=== PATIENT | female | born 1940 | race Caucasian/White ===

== ENCOUNTER → 2018-05-30 | Day surgery (SDC) | payer MEDICARE ==
--- NOTE | 2018-05-25 10:42 | Diagnostic Imaging Report ---
PROCEDURE: X-RAY CHEST, TWO VIEWS COMPARISON: None. INDICATIONS: PRE OPERATIVE CHEST X-RAY FOR STENT REPLACEMENT FINDINGS: LUNGS: No consolidations or edema. PLEURA: No effusions or pneumothorax. HEART \T\ MEDIASTINUM: The heart is within normal size-limits. Calcification within the aorta. BONES \T\ SOFT TISSUES: No acute findings. CONCLUSION: No acute thoracic abnormality. Garrett Amador D.O. Dictated by: Garrett Amador D.O. on 05/25/2018 at 10:45 Electronically approved by: Garrett Amador D.O. on 05/25/2018 at 10:45
[2018-05-25 10:45] LABS: BASOPHILS % 0.6 % (0.0-1.0); EOSINOPHILS # (AUTO) 0.1 (0.0-0.4); EOSINOPHILS % 2.7 % (0.0-6.0); HEMATOCRIT 38.4 % (34.2-44.1); HEMOGLOBIN 12.7 g/dL (12.0-16.0); LYMPHOCYTES # (AUTO) 1.1 (1.0-3.2); LYMPHOCYTES % 20.7 % (18.0-39.1); MEAN CORPUSCULAR HEMOGLOBIN 29.4 pg (28-32); MEAN CORPUSCULAR HGB CONC 33.1 g/dL (31-35); MEAN CORPUSCULAR VOLUME 88.9 fL (81-99); MONOCYTES # (AUTO) 0.4 (0.2-0.8); MONOCYTES % 7.4 % (4.4-11.3); NEUTROPHILS # (AUTO) 3.5 (2.1-6.9); NEUTROPHILS % 68.2 % (38.7-80.0); PLATELET COUNT 147 x10e3/uL (140-360); RED BLOOD COUNT 4.32 x10e6/uL (3.6-5.1); RED CELL DISTRIBUTION WIDTH 13.2 % (11.7-14.4)
[~2018-05-30] MED LIST: BELLADONNA/OPIUM 30 MG SUPP RC ONE; CEFTRIAXONE SOD 1 GM VIAL ONE; CENTRUM SILVER1 EAC3 PO; DEXAMETHASONE SOD PHOS INJ 4 MG/ML VIAL ONE; ESTER-C PO; GENTAMICIN 80MG/NS 100 ML 100 ML IV ONE; IOPAMIDOL 610MG/1ML 300 MG/ML VIAL IV ONE; LIDOCAINE HCL 2% LOCAL INJ 5 ML SDV VIAL INJ ONE; LISINOPRIL10 MG PO; ONDANSETRON HCL INJ 2 MG/ML VIAL ONE; PRAVASTATIN SOD40 MG PO; PRESERVISION A1 EACH PO; PROPOFOL IV EMULSION 10 MG/ML 20 ML VIAL ONE; SEVOFLURANE INHAL SOLN 250 ML PEN BTL ONE; VIACTIV SOFT C1 EACH PO; VITAMIN D31000 UNI1 PO
--- NOTE | 2018-05-30 07:30 | Diagnostic Imaging Report ---
PROCEDURE:X-RAY ABDOMEN - KUB COMPARISON:None. INDICATIONS:PREOPERATIVE XRAY FOR CYSTO SURGERY FINDINGS: Right internal ureteral stent with the proximal locking loop projecting over the expected region of the right renal pelvis. The distal locking loop projects over the urinary bladder. No suspicious calcifications project over the renal shadows or expected ureteral courses. No calculi project along side the right internal ureteral stent. Bowel gas pattern is nonobstructive. Regional skeletal structures are intact with multilevel degenerative disc changes of the lower lumbar spine. CONCLUSION: Appropriately positioned right internal ureteral stent. No plain film evidence of urolithiasis. Dictated by: Kem Bernstein M.D. on 05/30/2018 at 7:34 Electronically approved by: Kem Bernstein M.D. on 05/30/2018 at 7:34
--- NOTE | 2018-07-11 03:50 | Operative Report ---
DATE OF PROCEDURE: May 30, 2018 PREOPERATIVE DIAGNOSES: 1. Right indwelling ureteral stent. 2. Right ureteral stricture. 3. Right hydronephrosis due to stricture. 4. Atrophic vaginitis. POSTOPERATIVE DIAGNOSES: 1. Right indwelling ureteral stent. 2. Right ureteral stricture. 3. Right hydronephrosis due to stricture. 4. Atrophic vaginitis. OPERATIONS PERFORMED: 1. Cystourethroscopy with complicated removal of right indwelling ureteral stent (separate procedure performed for the diagnosis of stent). 2. Right ureteroscopy with dilation of stricture (separate procedure performed for the diagnosis of stricture). 3. Radiological services for supervision and interpretation of stricture dilation. 4. Cystourethroscopy with insertion of right indwelling ureteral stent (separate procedure performed to relieve the hydronephrosis). 5. Interpretation of retrograde ureteropyelography. 6. Pelvic examination under anesthesia. ANESTHESIA: General. COMPLICATIONS: None. CLINICAL SUMMARY: Vicky Rai is a 78-year-old woman with chronic right ureteral stent for chronic right ureteral stricture. The patient for numerous reasons is brought to the operating room later than desired to change her stent. She is aware of the risks of bleeding, infection, injury to adjacent structures and need for additional procedures and elected to proceed. OPERATIVE PROCEDURE IN DETAIL: Informed consent was verified. Vicky Rai was properly identified, taken to the operating room, placed on the cystoscopy table in supine position. Anesthesia was uneventfully begun. The patient was then carefully and gently repositioned in the dorsal lithotomy position with all pressure points well padded. Her genitalia were prepared and draped in usual sterile fashion. The 22.5-[place]an cystoscope sheath with the obturator in place was atraumatically inserted into the patient's urethra and the bladder was drained. Panendoscopy revealed no suspicious mucosal lesions. No tumors and no diverticula. There was encrustation noted on the stent emerging from the laterally displaced right ureteral orifice. Some encrustations were rather heavy. A guide wire was then placed alongside the stent and guided below the patient's kidney. The stent was then grasped completely, removed and discarded. A semi-rigid ureteroscope was then inserted alongside the guide wire and into the right ureter where we identified the stricture. We dilated across this stricture utilizing the ureteroscope. We proved there were no distal stones present in this ureter. The patient had previous stone debris. Under cystoscopic and fluoroscopic guidance, a right-sided indwelling ureteral stent was then placed. It was coiled in the patient's kidney as well as the patient's bladder. The retaining suture was cut short. Interpretation retrograde ureterography: Contrast was instilled in retrograde fashion on the right hand side via the ureteroscope. There was chronic dilation of the upper collecting system. There was chronic hydronephrosis. Caliceal blunting was noted. The stent was in good position, coiled in patient's kidney as well as patient's bladder at the end the case. The patient's bladder was then drained. The cystoscope was withdrawn. Pelvic examination under anesthesia revealed atrophic vaginitis. No abnormal palpable pelvic masses could be appreciated. There were no obvious mucosal lesions. The patient was then uneventfully reversed from anesthesia and taken to the recovery in stable condition. Explicit postoperative instructions were given. Will follow the patient up in the office. Job#: [id number] APOLONIA
== END | disposition home or self-care (01) ==
LOC: OR 05:12
PROVIDERS: ATTEND Urology
DX: N13.1 Hydronephrosis with ureteral stricture, not elsewhere classified (principal); Z46.6 Encounter for fitting and adjustment of urinary device; N95.2 Postmenopausal atrophic vaginitis; I12.9 Hypertensive chronic kidney disease with stage 1 through stage 4 chronic kidney disease, or unspecified chronic kidney disease; N18.9 Chronic kidney disease, unspecified; N39.0 Urinary tract infection, site not specified; Z87.442 Personal history of urinary calculi; Z01.810 Encounter for preprocedural cardiovascular examination; Z01.812 Encounter for preprocedural laboratory examination; Z01.818 Encounter for other preprocedural examination; Z85.3 Personal history of malignant neoplasm of breast; Z92.21 Personal history of antineoplastic chemotherapy; Z87.891 Personal history of nicotine dependence
CPT/HCPCS: 36415; 52332; 52344; 71046; 74420; 85025; 87086; 93005; C2617; J0696; J1100; J1580; J2001; J2405; Q9967; 74018

== ENCOUNTER → 2018-09-26 | Day surgery (SDC) | payer MEDICARE ==
[2018-09-22 11:29] LABS: BASOPHILS % 0.8 % (0.0-1.0); EOSINOPHILS # (AUTO) 0.1 (0.0-0.4); EOSINOPHILS % 2.4 % (0.0-6.0); HEMATOCRIT 37.4 % (34.2-44.1); HEMOGLOBIN 12.4 g/dL (12.0-16.0); LYMPHOCYTES # (AUTO) 0.9 (1.0-3.2); LYMPHOCYTES % 17.1 % (18.0-39.1); MEAN CORPUSCULAR HEMOGLOBIN 29.7 pg (28-32); MEAN CORPUSCULAR HGB CONC 33.2 g/dL (31-35); MEAN CORPUSCULAR VOLUME 89.7 fL (81-99); MONOCYTES # (AUTO) 0.4 (0.2-0.8); MONOCYTES % 7.9 % (4.4-11.3); NEUTROPHILS # (AUTO) 3.8 (2.1-6.9); NEUTROPHILS % 71.4 % (38.7-80.0); PLATELET COUNT 147 x10e3/uL (140-360); RED BLOOD COUNT 4.17 x10e6/uL (3.6-5.1)
[~2018-09-26] MED LIST changes: -BELLADONNA/OPIUM 30 MG SUPP RC ONE; -DEXAMETHASONE SOD PHOS INJ 4 MG/ML VIAL ONE; +FENTANYL CITRATE/PF 100MCG/2 ML INJ ONE
--- OUTSIDE RECORDS SUMMARY | 2018-09-26 05:10 | XMS REPORT | Clinical Summary ---
Author Author [facility] Address Unknown Phone Unavailable Care Team Providers Care Tissue Technician Name Role Phone Lainey Ramos MD PCP Allergies Not on File Current Medications Not on file Active Problems Not on file Social History Tobacco Use Types Packs/Day Years Used Date Never Assessed Sex Assigned at Date Recorded Not on file Last Filed Vital Signs Not on file Plan of Treatment Health Maintenance Due Date Last Done Comments SHINGRIX VACCINE (#1) 1989 ZOSTER VACCINE 1999 PNEUMOCOCCAL 2004 POLYSACCHARIDE VACCINE AGE 65 AND OVER PNEUMOCOCCAL-13 2004 INFLUENZA VACCINE 06/29/2018 Results Not on fileafter 09/25/2017 Insurance Payer Benefit Subscriber ID Type Phone Address Plan / Group [employer] MEDICARE [employer] xxxxxxxxx [employer] Home: [id number] [place] [id number]
[2018-09-26 08:15] VITALS: BP 138/74
--- NOTE | 2018-11-03 14:15 | Operative Report ---
DATE OF PROCEDURE: September 26, 2018 PREOPERATIVE DIAGNOSES 1. Right ureteral stricture. 2. Right hydronephrosis due to stricture. 3. Right indwelling ureteral stent. POSTOPERATIVE DIAGNOSES 1. Right ureteral stricture. 2. Right hydronephrosis due to stricture. 3. Right indwelling ureteral stent. 4. Mild cystocele. 5. Mild rectocele. 6. 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 OPERATIONS PERFORMED 1. Cystourethroscopy with complicated removal of right indwelling ureteral stent (separate procedure performed for the diagnosis of the stent). 2. Cystourethroscopy with dilation of right ureteral stricture (separate procedure performed for the diagnosis of stricture). 3. Radiological services for supervision and interpretation for stricture dilation. 4. Cystourethroscopy with insertion of right indwelling ureteral stent (separate procedure performed to relieve the hydronephrosis). 5. Interpretation of retrograde ureteropyelography. 6. Supervision of fluoroscopy. No radiologist present. 7. Pelvic examination under anesthesia. ANESTHESIA: General. COMPLICATIONS: None. CLINICAL SUMMARY: Vicky Rai is a 78-year-old woman with severe right ureteral stricture. She is brought in and stent being managed with a chronic stent. She is brought for the above procedures. She is aware the risks of bleeding, infection, injury to adjacent structures, need for additional procedures, and elected to proceed. OPERATIVE PROCEDURE IN DETAIL: Informed consent was verified. Vicky Rai was properly identified and taken to the operating room, and placed on the cystoscopy table in the supine position. Anesthesia was uneventfully begun. The patient was then carefully and gently repositioned in the dorsal lithotomy position with all pressure points well-padded. Her genitalia were prepared and draped in the usual sterile fashion. The 22.5-Surinamese cystoscope sheath with the obturator in place was atraumatically inserted into the patient's urethra and the bladder was drained. Panendoscopy of the urinary bladder revealed no suspicious mucosal lesions. No tumors. No stones and no diverticula. There was a stent emerging from the right ureteral orifice and it was somewhat encrusted. A guidewire was then placed alongside the stent and guided to the level of the patient's kidney. The stent was then grasped and completely removed and then discarded. A double lumen ureteral catheter was then placed over the guidewire and guided to the level of the patient's kidney. We utilized this as a coaxial dilator. We dilated the ureteral stricture. Clear efflux was obtained from the kidney. Contrast was injected. With cystoscopic and fluoroscopic guidance, a right-sided indwelling ureteral stent was then placed. It was coiled in the patient's kidney, as well as the patient's bladder. The retaining suture was cut. Interpretation of retrograde ureteropyelography: Contrast was instilled in a retrograde fashion on the right hand side. There was chronic appearing hydronephrosis with caliceal blunting. The stent was in good position, coiled in the patient's kidney, as well as the patient's bladder at the end of the case. There were no suspicious lesions noted and there were no filling defects. We then evacuated some sand out of the patient's bladder, which fell off the stent as we removed it. The patient's bladder was then drained. Pelvic examination under anesthesia revealed grade 1 cystocele and grade 1 rectocele. There was atrophic vaginitis with stenosis. No abnormal palpable pelvic masses could be appreciated. There were no obvious mucosal lesions. Patient was then uneventfully reversed from anesthesia and taken to the recovery room in stable condition. Explicit postop instructions were given. Will follow the patient up in the office. Of course, ongoing urological followup and regular stent changes are mandatory. Job#: [id number] [facility]
== END | disposition home or self-care (01) ==
LOC: OR 05:00
PROVIDERS: ATTEND Urology
DX: N13.1 Hydronephrosis with ureteral stricture, not elsewhere classified (principal); N81.10 Cystocele, unspecified; N81.6 Rectocele; I12.9 Hypertensive chronic kidney disease with stage 1 through stage 4 chronic kidney disease, or unspecified chronic kidney disease; N18.9 Chronic kidney disease, unspecified; Z87.891 Personal history of nicotine dependence; I25.2 Old myocardial infarction; Z85.3 Personal history of malignant neoplasm of breast; Z92.21 Personal history of antineoplastic chemotherapy; Z92.3 Personal history of irradiation; N95.2 Postmenopausal atrophic vaginitis; N89.5 Stricture and atresia of vagina
CPT/HCPCS: 36415; 52332; 52341; 74420; 85025; 93005; C1758; C2617; J0696; J1580; J2001; J2405; J2704; Q9967